=== PATIENT | male | born 1985 | race Caucasian/White ===

== ENCOUNTER 2019-10-28 02:10 | Emergency (ER) | payer MEDICAID, OTHER ==
[~2019-10-28] VITALS: Ht 182.9 cm; Wt 81.6 kg
[2019-10-28 02:16] VITALS: BP 137/89
[2019-10-28] MEDS ORDERED: diphenhdrAMINE HCL 25 MG CAP PO ONE ×2 (02:24→02:30)
[2019-10-28] MEDS ORDERED: methylPREDNISolone SOD SUCC 125 MG/2 ML VL IV ONE (02:45)
== END 2019-10-28 04:07 | disposition home or self-care (01) ==
LOC: EDBD 02:10 → ER 02:14
DX: T78.1XXA Other adverse food reactions, not elsewhere classified, initial encounter (principal); L50.0 Allergic urticaria; L29.9 Pruritus, unspecified; Z91.013 Allergy to seafood; X58.XXXA Exposure to other specified factors, initial encounter
CPT/HCPCS: 96374; 99283; J2930